=== PATIENT | male | born 1950 | race Caucasian/White ===

== ENCOUNTER 2023-04-08 16:22 | Emergency (ER) | payer MEDICARE, BC, SELFPAY ==
[2023-04-08] VITALS (58 sets, daily range): BP systolic 62–157; BP diastolic 41–91; PULSE 59–135; RESP 2–27; O2SAT 93–99
--- NOTE | 2023-04-08 16:15 | RT.EKG_ITS ---
APPROVED REPORT Exam: Resting ECG Reason for Exam: cardiac arrest Patient Location: E HR:128 bpm ECG Measurements Heart Rate 128 AXIS LA 192 P 68 QRSd 124 QRS 46 QT 346 T 29 QTc 505 Conclusion Sinus tachycardia...rate> 99 Ventricular tachycardia, unsustained...sequence of 3 or more V complexes Probable left atrial enlargement...P >50mS, <-0.10mV V1 Nonspecific intraventricular conduction delay...QRSd >115mS, not LBBB/RBBB Probable anterolateral infarct, old...Q>35mS, abnrm ST-T, V2-V6,I,aVL
[2023-04-08] MEDS: Etomidate 20 MG/10 ML VIAL IVP (16:29)
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
[2023-04-08] MEDS: PROPOFOL 1,000 MG/100 ML BTL 2.97 MG IV (16:37)
[2023-04-08] MEDS: Omnipaque 350 MG/ML 100 ML BTL IJ (16:38)
[2023-04-08 16:39] LABS: BE (Venous) -10 mmol/L (-2-3); HCO3 (Venous) 20 mmol/L (23-28); pO2 (Venous) 212 mmHg
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
[2023-04-08 16:41] LABS: Abs Immature Grans 0.35 10^3/uL (0.0-0.06); Absolute Basophil Count 0.06 10^3/uL (0.0-0.2); Absolute Eosinophil Count 0.08 10^3/uL (0.0-0.7); Absolute Lymphocyte Count 3.09 10^3/uL (1.2-3.4); Basophils % 0.4; Eosinophils % 0.6; HGB 14.3 g/dL (13.5-17.5); Immature Grans % 2.5; Lymphocytes % 22.5; MCH 30.4 pg (27.0-33.0); MCHC 32.5 % (32.0-36.0); MCV 94 fL (80-95); Monocytes % 4.9; Neutrophils % 69.1; Platelet Count 194 10^3/uL (130-400); RDW-SD 42.1 fL; WBC 13.75 10^3/uL (4.4-10.8)
[2023-04-08 16:42] LABS: Absolute Monocyte Count 0.67 10^3/uL (0.1-0.8)
[2023-04-08 16:48] LABS: pCO2 (Venous) 69 mmHg (41-51); pH (Venous) 7.08 (7.31-7.41)
[2023-04-08 16:49] LABS: O2 Sat (Venous) > 99 %
[2023-04-08] MEDS: Normal Saline 1,000 ML 1000 ML IV (16:50)
[2023-04-08] MEDS: Normal Saline - Diluent 50 ML VIAL IJ (16:53)
[2023-04-08 16:59] LABS: ALT 84 U/L (16-63); AST 87 U/L (15-37); Albumin 3.6 g/dL (3.4-5.0); Alkaline Phosphatase 80 U/L (46-116); Anion Gap 14.4 mmol/L (3-11); BUN 23 mg/dL (7-18); Bilirubin, Total 0.3 mg/dL (0.2-1.0); CO2 22.6 mmol/L (21.0-32.0); CREATININE 1.2 mg/dL (0.70-1.30); Calcium 8.6 mg/dL (8.5-10.1); Chloride 103 mmol/L (98-107); ETHANOL BLOOD < 3.0 mg/dL (<10); Estimated GFR 63.46 (mL/min/1.73m2); Glucose 272 mg/dL (74-106); Magnesium 2.1 mg/dL (1.8-2.4); Potassium 3.9 mmol/L (3.5-5.1); Sodium 140 mmol/L (136-145); Total Protein 6.9 g/dL (6.4-8.2); Troponin I < 50 ng/L (< or =60)
--- NOTE | 2023-04-08 17:08 | DI.CT_ITS ---
Exam(s) CT HEAD CERVICAL SPINE WO EXAM: CT HEAD CERVICAL SPINE WO CLINICAL HISTORY: cardiac arrest. TECHNIQUE: Imaging Protocol: Axial computed tomography images with coronal and sagittal reformatted images were created and reviewed COMPARISON: No exams were available for comparison FINDINGS: BRAIN: There are no skull fractures nor fluid in the visualized paranasal sinuses. However, there are cervi abby fractures. See below. There is no evidence of intracranial hemorrhage, mass effect, or shift of midline structures. There are no extra-axial fluid collections. The ventricles are not enlarged or shifted and there is no blo od within the ventricular system nor within the basal cisterns. CERVICAL SPINE: There are multiple fractures of the C1 arch anteriorly and posterolaterally on both sides. Bone frag ments do not significantly encroach upon the spinal canal.. Odontoid is not fractured nor displace a nd there are no fractures of C2 evident. No other fractures identified in the cervical spine. No fa cet malalignment. Multilevel facet arthropathy noted. Multilevel disc space narrowing. Bilateral pneumothorax noted,. Patient is intubated. IMPRESSION: Fractures of C1 arch both anteriorly and laterally on both sides with mild distraction. The no signi ficant inward displacement of bone fragments into the spinal canal. Fracture lines do not extend int o the foramen transversarium. No other cervical fractures evident. No skull fracture nor intracranial hemorrhage. No infarcts evident. Bilateral pneumothorax. First read by [facility]. Report called to ER physician 04/08/2023 5:56 p.m. RADIATION DOSE DELIVERED: 1,664.71mGy.cm Total DLP DATA REPOSITORY: All CT scans at this facility are submitted to the National Radiology Data Registry (NRDR) Dose Index Registry (DIR) with the [employer] (ACR). RADIATION OPTIMIZATION: All CT scans at this facility use at least one of these dose optimization te chniques: automated exposure control; mA and/or kV adjustment per patient size (includes targeted exa ms where dose is matched to clinical indication); or iterative reconstruction.
[2023-04-08] MEDS: Norepinephrine in D5W 8 MG/250 ML BAG 9.375 MG IV (17:10)
[2023-04-08 17:21] LABS: INR 1.3 (0.9-1.1); PTT Activated 26.9 sec (23.6-32.8); Prothrombin Time 12.6 sec (9.1-11.1)
[2023-04-08 17:29] LABS: BE (Venous) -9 mmol/L (-2-3); HCO3 (Venous) 20 mmol/L (23-28); O2 Sat (Venous) 97 %; TCO2 (Venous) 19 mmol/L (24-29); pCO2 (Venous) 51 mmHg (41-51); pO2 (Venous) 101 mmHg
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
[2023-04-08 17:33] LABS: pH (Venous) 7.19 (7.31-7.41)
[2023-04-08 17:34] LABS: Lactate 3.6 mmol/L (0.6-1.4)
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
[2023-04-08 17:45] LABS: *AMPHETAMINES SCREEN URINE Negative (Negative); *BARBITURATES SCREEN URINE Negative (Negative); *BENZODIAZEPINES SCREEN URINE Negative (Negative); Cannabinoids THC Negative (Negative); Cocaine Screen,Urine Negative (Negative); METHADONE URINE SCREEN Negative (Negative); OPIATES URINE SCREEN Negative (Negative)
[2023-04-08 17:47] LABS: Bilirubin Negative (Negative); Blood Large (Negative); Clarity Sl Cloudy (Clear); Glucose 100 mg/dL (Negative); Ketones Negative (Negative); Leukocyte Esterase Negative (Negative); Nitrite Negative (Negative); Specific Gravity >= 1.030 (1.005-1.025); Urobilinogen 0.2 mg/dL (Up to 0.2); pH 5.5 (5-8)
[2023-04-08 17:54] LABS: Tricyclic Antidepressants Negative (Negative)
[2023-04-08 17:58] LABS: Epithelial Cells Rare HPF (Negative); WBC 0-2 HPF (0-5)
[2023-04-08 17:59] LABS: Bacteria Negative HPF (Negative); C & S Indicated? No; Casts 0-2 Hyaline LPF (Negative); Crystals Few Amorphous HPF (Negative); Mucus Moderate (Negative)
[2023-04-08 17:59] LABS: Troponin I < 50 ng/L (< or =60)
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
[2023-04-08] MEDS: fentaNYL 100 MCG/2 ML VIAL 75 MCG IVP (18:19)
--- NOTE | 2023-04-08 19:15 | DI.VRAD_ITS ---
PROCEDURE INFORMATION: Exam: XR Chest Exam date and time: 04/08/2023 7:04 PM Age: 72 years old Clinical indication: Other: Intuatbion TECHNIQUE: Imaging protocol: Radiologic exam of the chest. Views: 1 view. COMPARISON: CT CHEST/ABD/PEL W 04/08/2023 4:54 PM FINDINGS: Tubes, catheters and devices: ET tube is noted, tip is 5.9 cm above pastor. There are bilateral chest tubes tips projecting over medial hemithorax. Lungs: Mild airspace opacity in the right infrahilar lung, similar to prior exam. Pleural spaces: No gross pneumothorax visualized. Heart/Mediastinum: Cardiac silhouette at the upper limits of normal in size. Bones/joints: Stable fractures of the bilateral rib cages. IMPRESSION: 1. ET tube is in satisfactory position above pastor. 2. Chest tubes in the bilateral hemithorax . There is no radiographic pneumothorax visualized. 3. Stable mild airspace opacity in the right infrahilar lung. Dictated and Authenticated by: Rajeev Soto MD. Ordering:TrentCADEN Jackson MD
[2023-04-08] MEDS: DEXTROSE 5%-WATER 250 ML 9.4 ML (19:53)
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
== END 2023-04-08 19:37 ==
PROVIDERS: Emergency Provider Emergency Medicine; PCP Internal Medicine
DX: I46.9 Cardiac arrest, cause unspecified (principal); J93.83 Other pneumothorax; S22.43XA Multiple fractures of ribs, bilateral, initial encounter for closed fracture; S12.000A Unspecified displaced fracture of first cervical vertebra, initial encounter for closed fracture; S29.8XXA Other specified injuries of thorax, initial encounter; Z79.82 Long term (current) use of aspirin; V18.4XXA Pedal cycle driver injured in noncollision transport accident in traffic accident, initial encounter; Y92.488 Other paved roadways as the place of occurrence of the external cause; Y93.55 Activity, bike riding
CPT/HCPCS: 00123; 31500; 32551; 74177; 80053; 80307; 82805; 86850; 86900; 86901; 93005; 93308; 99291; 70450; 71045; 71260; 72125; 80320; 81003; 81015; 83605; 83735; 84484; 85025; 85610; 85730; 93010; J2704; J3010; J3490